=== PATIENT | male | born 2000 | race Caucasian/White ===

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

== ENCOUNTER 2022-08-31 10:12 | Emergency (ER) | payer SELFPAY ==
[2022-08-31 10:20] VITALS: BP 139/74; PULSE 65; RESP 17; TEMP 37; O2SAT 99
--- NOTE | 2022-08-31 11:00 | DI.RAD_ITS ---
Exam(s) XR ANKLE LT COMPLETE EXAM: XR ANKLE LT COMPLETE CLINICAL HISTORY: injury, lateral pain TECHNIQUE: 2D digital imaging was performed of the left ankle. Three images were obtained. AP, lat eral and oblique views were obtained. COMPARISON: CR XR ANKLE LT COMPLETE from 07/20/2019 FINDINGS: BONES: No acute fracture is present. No bony destructive lesion is seen. Old well corticated ossicles are seen adjacent to both the lateral and medial malleoli. JOINTS:The ankle mortise is normally aligned. SOFT TISSUE: Normal. IMPRESSION: No acute fracture or dislocation. DATA REPOSITORY: RADIATION DOSE DELIVERED:
--- NOTE | 2022-08-31 11:10 | ED.GENADUL_ITS ---
Discharge Plan Disposition Patient Disposition: HOME Condition: Stable Discharge Details Clinical Impression: Left ankle sprain Primary Care Provider: Unknown,Unknown ED Provider: Lacho Rodriguez Home Meds and New Rx's Prescriptions: No Action hydrocortisone 2.5 % cream 1 applic TP BID-QID PRN (Reason: rash) Qty: 28 2RF Rx Instructions: apply to forehead as needed Discharge Instructions Instructions: Ankle Sprain (ED) Additional Instructions: Please use crutches for the next 2 to 3 days and then slowly increase weightbearing activity with walking boot until improved. Please keep walking boot on until you follow-up with orthopedics for reassessment. You may continue to take [id number] pain medication as needed and keep ankle elevated, apply ice to help with swelling, use walking boot for any ambulation. Stand Alone Forms: Work Release Referrals: [facility] [Provider Group] (Please call their office on Saturday morning for arrangement of follow-up appointment.) Discharge Data Discharge Date/Time-TO BE ENTERED AT DEPARTURE: 08/31/22 13:12 Medical Decision Making Patient presenting to the emergency department for chief complaint of left ankle injury. Patient reports 2 days ago while playing basketball he came down and rolled it medially. Patient denies any other injury or trauma. Does state that he has had some thigh pain but attributes that more to muscular skeletal injury from the fall. Physical exam shows significant tenderness swelling and ecchymosis to the lateral left ankle with painful range of motion motion that I feel is mostly limited by patient's pain level with movement. We will perform radiological imaging for evaluation of acute fracture versus moderate to severe sprain. Reviewed radiological imaging and radiological imaging shows no acute fracture or dislocation. With significant amount of pain discomfort and ecchymosis and concern for moderate to severe sprain. Will place patient on orthopedic follow- up and have patient use crutches for the next couple days and then slowly i ncrease activity with walking boot. After discussion of diagnosis and plan of care patient has no further needs, questions, or concerns and states clear understanding to return to the emergency department for any worsening symptoms. This documentation was generated using [employer] system, please disregard any oddities of phrase or misspellings. Imaging Data Radiologic Study: Imaging: X-Ray Radiologist's impression: FINDINGS: BONES: No acute fracture is present. No bony destructive lesion is seen. Old well corticated ossicles are seen adjacent to both the lateral and medial malleoli. JOINTS:The ankle mortise is normally aligned. SOFT TISSUE: Normal. IMPRESSION: No acute fracture or dislocation. HPI General Mode of arrival: ambulatory . Date/Time Provider Initiated Documentation: 08/31/22 10:51 . Limitations to Documentation: no limitations . Information obtained by: patient and RN notes reviewed . History of Present Illness 21 year old M presents to the emergency department with the chief complaint of Left ankle, described as mild, with intensity rated at 2. Quality is described as aching, and is localized to the left and lower extremity. Patient proximal. Patient started experiencing this day(s) (2) and it has been constant. No relieving factors improve symptom(s), Movement worsens symptoms . Patient notes no other symptoms.. Patient did receive the following treatments prior to arrival, none Related Data Home Medications Medication Instructions Recorded Confirmed hydrocortisone 2.5 % topical cream 1 applic topical BID-QID PRN rash 01/07/19 01/07/19 #28 grams Previous Rx's Medication Instructions Recorded hydrocortisone 2.5 % topical cream 1 applic topical BID-QID PRN rash 01/07/19 #28 grams Allergies Allergy/AdvReac Type Severity Reaction Status Date / Time No Known Allergies Allergy Verified 07/20/19 14:53 General Stated Complaint: Orthopedic PEPPER: 4 Review of Systems Narrative: 6 systems reviewed and unremarkable except what is marked below. 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 Seen in ER. Attention deficit hyperactivity disorder on med in past - not helpful Concussion 3 so far- no LOC with them Depression had counseling in past. Suicide attempt 09/2017. 2018 - reports he is doing well not currently in counseling no SI Insomnia Surgical History testicular torsion repair Left[place] 13 [facility] [place] History Father Migraine age 28- hospitalized for migraine Sister Depression Other Healthy adult Social History Smoking/Tobacco Use Status: Current every day Tobacco Type: e-cigarettes Smoking risk assessment performed?: Yes Alcohol Intake: current Alcohol Intake frequency: holidays/special occasions only Drug use: Occasionally Substance use type: marijuana Do you feel safe at home: Yes Do you feel safe in your relationship?: Yes Additional Social history: Lives with Dad Dad works at [employer] Exam Const General: cooperative, no acute distress and not ill appearing Orientation: alert, awake and oriented x3 Resp Effort & Inspection: normal respiratory effort, able to speak in complete sentences and no respiratory distress Cardio Rate: regular rate Rhythm: regular rhythm Pulses: posterior tibial pulses present, dorsalis pedis present and normal peripheral pulses Skin General skin exam: no rashes or lesions noted Neuro General: patient alert, patient awake, patient oriented x3 and moves all extremities Sensory Exam: no sensory deficits noted Extrem General: normal exam except as noted Left lower extremity: ankle Details: tenderness Location: of the lateral malleolus, anterolaterally and posteriorly, swelling Details: laterally, abnormal ROM Details: pain with active ROM Details: with plantar flexion, with inversion and with eversion and pain with passive ROM Details: with plantar flexion, with inversion and with eversion and ecchymosis lateral Details: single; no abrasions and no lacerations Course Vital Signs Vital signs: Vital Signs Temperature 37.0 C 08/31/22 10:20 Pulse 65 08/31/22 10:20 Respiratory Rate 17 08/31/22 10:20 Blood Pressure 139/74 08/31/22 10:20 Pulse Oximetry 99 08/31/22 10:20 Temperature 37.0 C 08/31/22 10:20 Temperature Source Temporal Artery Scan 08/31/22 10:20 Pulse 65 08/31/22 10:20 Respiratory Rate 17 08/31/22 10:20 Respiratory Effort Non-Labored 08/31/22 10:24 Blood Pressure 139/74 08/31/22 10:20 Blood Pressure Position Sitting 08/31/22 10:20 Pulse Oximetry 99 08/31/22 10:20 Oxygen Delivery Method Room Air 08/31/22 10:20 Oxygen Flow Rate 0 08/31/22 10:20
== END 2022-08-31 13:12 | disposition home or self-care (01) ==
PROVIDERS: Emergency Provider Nurse Practitioner Family
DX: S93.402A Sprain of unspecified ligament of left ankle, initial encounter (principal); X50.9XXA Other and unspecified overexertion or strenuous movements or postures, initial encounter; Y93.67 Activity, basketball
CPT/HCPCS: 99283; 73610; 99282